=== PATIENT | female | born 1995 | race American Indian/Alaskan Native ===

== ENCOUNTER 2018-12-20 16:59 | Emergency (ER) | payer SELFPAY ==
--- NOTE | 2018-12-20 18:24 | Event Note ---
ED Screening Note Date of service: 12/20/18 Time: 18:19 ED Screening Note: 23 y/o female comes in for n/v and pelvic pain. She is 15 weeks preg. No vaginal bleeding. Follow Dr. Patterson [facility] on [address] 1 high risk preg. This initial assessment/diagnostic orders/clinical plan/treatment(s) is/are subject to change based on patients health status, clinical progression and re- assessment by fellow clinical providers in the ED. Further treatment and workup at subsequent clinical providers discretion. Patient/guardian urged not to elope from the ED as their condition may be serious if not clinically assessed and managed. Initial orders include:
[2018-12-20] MEDS ORDERED: ZOFRAN ODT PO ONE (19:34)
[2018-12-20] MEDS ORDERED: TYLENOL PO ONE (19:34)
[2018-12-20 19:47] LABS: Bacteria,Urine 1+ /HPF (Negative); Bilirubin,Urine NEG (Negative); Blood,Urine NEG (Negative); Color,Urine Straw (Yellow); Mucus,Urine FEW /HPF; Protein,Urine <15 mg/dL mg/dL (Negative); Urobilinogen,Urine < 2.0 mg/dL (<2.0)
--- NOTE | 2018-12-20 19:52 | Ultrasound Report ---
ULTRASOUND OBSTETRIC 12/20/2018 Indication: Pelvic pain. Evaluate movement. Findings: There is a single intrauterine . BPD = 3.0 cm = 15 weeks, 3 day(s). Head circumference = 11.1 cm = 15 weeks, 2 day(s). Abdominal circumference = 9 cm = 15 weeks, 2 day(s). Femur length = 1.9 cm = 15 weeks, 5 day(s). Overall estimated sonographic age = 15 weeks, 3 day(s). heart rate is 163 beats per minute. position is cephalic. Cervix appears closed. movement is present. Placenta is anterior. Amniotic fluid volume appears normal. Maternal adnexa appear normal. Impression: 1. Single living intrauterine with estimated sonographic age of 15 weeks, 3 day(s). Signer Name: Ellen Santa MD Signed: 12/20/2018 7:48 PM Workstation Name: [id number]
[2018-12-20 20:13] LABS: Basophils % (Auto) 0.2 % (0.0-1.8); Eosinophils # (Auto) 0.1 K/mm3 (0.0-0.4); Eosinophils % (Auto) 1.5 % (0.0-4.3); Hematocrit 32.5 % (30.3-42.9); Hemoglobin 10.6 gm/dl (10.1-14.3); Lymphocytes # (Auto) 1.5 K/mm3 (1.2-5.4); Lymphocytes % (Auto) 22.5 % (13.4-35.0); Mean Corpuscular HGB Conc 33 % (30-34); Mean Corpuscular Volume 81 fl (79-97); Monocytes # (Auto) 0.6 K/mm3 (0.0-0.8); Monocytes % (Auto) 9.9 % (0.0-7.3); Platelet Count 181 K/mm3 (140-440); Red Blood Count 4.03 M/mm3 (3.65-5.03); Red Cell Distribution Width 17.1 % (13.2-15.2)
[2018-12-20 21:04] LABS: Alanine Aminotransferase 8 units/L (7-56); Albumin 3.5 g/dL (3.9-5); BUN/Creatinine Ratio 15; Blood Urea Nitrogen 6 mg/dL (7-17); Calcium 8.9 mg/dL (8.4-10.2); Hemolysis Index 8
--- NOTE | 2018-12-20 21:55 | Emergency Department Report ---
ED Abdominal Pain HPI - General Chief Complaint: Nausea/Vomiting/Diarrhea Stated Complaint: 15WKS /VOMITING/BACK/STOMACH PAIN Time Seen by Provider: 12/20/18 18:18 Source: patient Mode of arrival: Ambulatory Limitations: No Limitations - History of Present Illness Initial Comments: Patient is a A0 23-year-old AA female who is approximately 15 weeks gestation and presents to the ED accompanied acute onset persistent diffuse abdominal pain for 2 days. Patient says the pain is worse with any movement or palpation. Patient denies dysuria, urinary frequency and urgency, vaginal bleeding, vaginal discharge, abdomen, nausea, vomiting, diarrhea or chest pain and dyspnea, cough or fever and chills MD Complaint: abdominal pain -: Sudden, days(s) (2) Location: LLQ, suprapubic Radiation: LLQ, suprapubic Migration to: no migration Severity: moderate Severity scale (0 -10): 3 Quality: cramping, aching Consistency: intermittent Improves With: nothing Worsens With: nothing Associated Symptoms: denies other symptoms, anorexia. denies: nausea, vomiting, diarrhea, fever, dysuria, hematemesis, hematochezia, melena, hematuria, other - Related Data Previous Rx's Medication Instructions Recorded Last Taken Type Amoxicillin [Trimox CAP] 500 mg PO Q8H #30 capsule 11/15/13 Unknown Rx Promethazine /Codeine 5 ml PO Q6H PRN #30 ml 11/15/13 Unknown Rx [Phenergan/Codeine 6.25-10 mg/5 ml] Brompheniramine/Pseudoephed/Dm 10 ml PO Q4H PRN 7 Days syrup 04/14/15 Unknown Rx [Bromfed Dm Cough Syrup] Ibuprofen [Motrin 600 MG tab] 600 mg PO Q8H PRN #20 tablet 04/14/15 Unknown Rx Allergies Allergy/AdvReac Type Severity Reaction Status Date / Time No Known Allergies Allergy Verified 12/20/18 17:03 ED Review of Systems ROS: Stated complaint: 15WKS /VOMITING/BACK/STOMACH PAIN Other details as noted in HPI Constitutional: denies: chills, fever Eyes: denies: eye pain, eye discharge, vision change ENT: denies: ear pain, throat pain Respiratory: denies: cough, shortness of breath, wheezing Cardiovascular: denies: chest pain, palpitations Endocrine: no symptoms reported Gastrointestinal: abdominal pain. denies: nausea, vomiting, diarrhea, constipation, hematemesis Genitourinary: denies: urgency, dysuria, frequency, hematuria, discharge, abnormal menses, dyspareunia Musculoskeletal: denies: back pain, joint swelling, arthralgia Skin: denies: rash, lesions Neurological: denies: headache, weakness, paresthesias Psychiatric: denies: anxiety, depression Hematological/Lymphatic: denies: easy bleeding, easy bruising ED Past Medical Hx - Past Medical History Previous Medical History?: No - Surgical History Past Surgical History?: Yes Additional Surgical History: c section - Social History Smoking Status: Never Smoker Substance Use Type: None - Medications Home Medications: Home Medications Medication Instructions Recorded Confirmed Last Taken Type Amoxicillin [Trimox CAP] 500 mg PO Q8H #30 capsule 11/15/13 Unknown Rx Promethazine /Codeine 5 ml PO Q6H PRN #30 ml 11/15/13 Unknown Rx [Phenergan/Codeine 6.25-10 mg/5 ml] Brompheniramine/Pseudoephed/Dm 10 ml PO Q4H PRN 7 Days syrup 04/14/15 Unknown Rx [Bromfed Dm Cough Syrup] Ibuprofen [Motrin 600 MG tab] 600 mg PO Q8H PRN #20 tablet 04/14/15 Unknown Rx ED Physical Exam - General Limitations: No Limitations General appearance: alert, in no apparent distress - Head Head exam: Present: atraumatic, normocephalic, normal inspection - Eye Eye exam: Present: normal appearance, PERRL, EOMI Pupils: Present: normal accommodation - ENT ENT exam: Present: normal exam, normal orophraynx, mucous membranes moist, TM's normal bilaterally, normal external ear exam - Neck Neck exam: Present: normal inspection, full ROM. Absent: tenderness, meningismus, lymphadenopathy, thyromegaly - Respiratory Respiratory exam: Present: normal lung sounds bilaterally. Absent: respiratory distress, wheezes, rales, rhonchi, stridor, chest wall tenderness, accessory muscle use, decreased breath sounds, prolonged expiratory - Cardiovascular Cardiovascular Exam: Present: regular rate, normal rhythm, normal heart sounds. Absent: systolic murmur, diastolic murmur, rubs, gallop - GI/Abdominal GI/Abdominal exam: Present: soft, tenderness (mildly tender suprapubic and left lower quadrant area), normal bowel sounds. Absent: hyperactive bowel sounds, hypoactive bowel sounds, organomegaly - Rectal Rectal exam: Present: deferred - Extremities Exam Extremities exam: Present: normal inspection, full ROM, normal capillary refill - Back Exam Back exam: Present: normal inspection, full ROM. Absent: CVA tenderness (L), muscle spasm, paraspinal tenderness - Neurological Exam Neurological exam: Present: alert, oriented X3, CN II-XII intact, normal gait, reflexes normal - Psychiatric Psychiatric exam: Present: normal affect, normal mood - Skin Skin exam: Present: warm, dry, intact, normal color. Absent: rash ED Course Vital Signs 12/20/18 21:58 Temperature 98.8 F Pulse Rate 81 Respiratory 16 Rate Blood Pressure 106/57 [Right] O2 Sat by Pulse 100 Oximetry - Reevaluation(s) Reevaluation #1: 12/20/18 21:58 This is a 23-year-old A0 AA female who is approximately 15 weeks gestation and who presented to the ED with left lower quadrant and suprapubic pain for 2 days. In the ED, patient is alert and oriented 3 and distention and distress. Lab test results were reviewed and are all nonactionable. The pelvic ultrasound shows single live IUP approximately 15 weeks and 3 days gestation with heart rate of 153 bpm. No other abnormalities identified in the ultrasound. Patient was treated for pain in the ED with Tylenol and on reevaluation, patient's pain is well controlled with medications. Patient is discharged home and advised to maintain a complete pelvic rest and follow up without MANAGER ENTRY physician in 3-5 days for reevaluation. The patient was also advised to return to the ED immediately if the symptoms get worse. ED Medical Decision Making - Lab Data Result diagrams: 12/20/18 19:40 12/20/18 19:40 - Radiology Data Radiology results: report reviewed, image reviewed Findings [facility] [address] [place] [address] Ultrasound Report Signed Patient: ROMÁN PEACE MR#: [id number] : 1995 Acct:[id number] Age/Sex: 23 / F ADM Date: 12/20/18 Loc: ED Attending Dr: Ordering Physician: YIN MOODY Date of Service: 12/20/18 Procedure(s): US OB >= 14 weeks Fetus Accession Number(s): [id number] cc: RAJI YIN RESTREPO ULTRASOUND OBSTETRIC 12/20/2018 Indication: Pelvic pain. Evaluate movement. Findings: There is a single intrauterine . BPD = 3.0 cm = 15 weeks, 3 day(s). Head circumference = 11.1 cm = 15 weeks, 2 day(s). Abdominal circumference = 9 cm = 15 weeks, 2 day(s). Femur length = 1.9 cm = 15 weeks, 5 day(s). Overall estimated sonographic age = 15 weeks, 3 day(s). heart rate is 163 beats per minute. position is cephalic. Cervix appears closed. movement is present. Placenta is anterior. Amniotic fluid volume appears normal. Maternal adnexa appear normal. Impression: 1. Single living intrauterine with estimated sonographic age of 15 weeks, 3 day(s). Signer Name: Ellen Santa MD Signed: 12/20/2018 7:48 PM Workstation Name: [id number] Transcribed By: JUDY Dictated By: Ellen Santa MD Electronically Authenticated By: Ellen Santa MD Signed Date/Time: 12/20/18 194 - Medical Decision Making This is a 23-year-old A0 AA female who is approximately 15 weeks gestation and who presented to the ED with left lower quadrant and suprapubic pain for 2 days. In the ED, patient is alert and oriented 3 and distention and distress. Lab test results were reviewed and are all nonactionable. The pelvic ultrasound shows single live IUP approximately 15 weeks and 3 days gestation with heart rate of 153 bpm. No other abnormalities identified in the ultrasound. Patient was treated for pain in the ED with Tylenol and on reevaluation, patient's pain is well controlled with medications. Patient is discharged home and advised to maintain a complete pelvic rest and follow up without MANAGER ENTRY physician in 3-5 days for reevaluation. The patient was also advised to return to the ED immediately if the symptoms get worse. - Differential Diagnosis Abdominal pain; Ovarian cysts; UTI; Threatened Miscarriage Critical care attestation.: If time is entered above; I have spent that time in minutes in the direct care of this critically ill patient, excluding procedure time. ED Disposition Clinical Impression: Abdominal pain during in second trimester Disposition: DC- TO HOME OR SELFCARE Is pt being admited?: No Does the pt Need Aspirin: No Condition: Stable Instructions: Abdominal Pain in (ED) Additional Instructions: Maintain a complete pelvic rest, take Tylenol as needed for pain, and follow-up with your MANAGER ENTRY physician in 3-5 days for reevaluation. Return to the ED immediately if symptoms get worse Referrals: CHERYL MONTEZ MD [Primary Care Provider] - 3-5 Days Time of Disposition: 21:50 Print Language: PASHTO
[2018-12-20 21:59] VITALS: BP 106/57
== END 2018-12-20 21:54 | disposition home or self-care (01) ==
LOC: ED 16:59
DX: O26.892 Other specified pregnancy related conditions, second trimester (principal); Z79.899 Other long term (current) drug therapy; Z3A.15 15 weeks gestation of pregnancy
CPT/HCPCS: 36415; 76805; 80053; 81001; 84702; 85025; Q0162

== ENCOUNTER 2019-04-29 13:18 | Outpatient (CLI) | payer MEDICAID ==
[2019-04-29] MEDS ORDERED: LACTATED RINGERS 1,000 ML IV SCH (14:00)
[2019-04-29 14:30] LABS: Bacteria,Urine 2+ /HPF (Negative); Bilirubin,Urine NEG (Negative); Blood,Urine NEG (Negative); Color,Urine Straw (Yellow); Protein,Urine <15 mg/dL mg/dL (Negative); Urobilinogen,Urine < 2.0 mg/dL (<2.0)
[2019-04-29 15:14] LABS: Hematocrit 34.5 % (30.3-42.9); Hemoglobin 11.3 gm/dl (10.1-14.3); Mean Corpuscular HGB Conc 33 % (30-34); Mean Corpuscular Volume 82 fl (79-97); Platelet Count 150 K/mm3 (140-440); Red Blood Count 4.22 M/mm3 (3.65-5.03); Red Cell Distribution Width 17.8 % (13.2-15.2)
[2019-04-29 15:38] LABS: Alanine Aminotransferase 9 units/L (7-56); Uric Acid 3.9 mg/dL (3.5-7.6)
[2019-04-29] MEDS ORDERED: ACETAMINOPHEN 500 MG TAB PO ONE (17:40)
[2019-04-29] MEDS ORDERED: BUTALB/ACETAMINOPHEN/CAFFEINE TAB PO PRN (19:04)
[2019-04-29 20:38] VITALS: BP 121/72
== END 2019-04-29 21:12 | disposition home or self-care (01) ==
LOC: TRG 13:18
PROVIDERS: ATTEND Obstetrics & Gynecology
DX: O13.3 Gestational [pregnancy-induced] hypertension without significant proteinuria, third trimester (principal); O47.03 False labor before 37 completed weeks of gestation, third trimester; Z3A.34 34 weeks gestation of pregnancy
CPT/HCPCS: 36415; 59025; 81001; 82565; 83615; 84450; 84460; 84550; 85027; 96360; 96361; J7120

== ENCOUNTER 2019-05-02 18:02 | Outpatient (CLI) | payer MEDICAID | END 2019-05-02 21:48 | disposition home or self-care (01) | LOC: TRG 18:02 | PROVIDERS: ATTEND Obstetrics & Gynecology | DX: O26.893 Other specified pregnancy related conditions, third trimester (principal); R19.04 Left lower quadrant abdominal swelling, mass and lump; Z3A.34 34 weeks gestation of pregnancy | CPT/HCPCS: 59025 ==

== ENCOUNTER 2021-12-09 15:47 | Emergency (ER) | payer MEDICAID ==
--- NOTE | 2021-12-09 22:18 | Emergency Department Report ---
ED General Adult HPI - General Chief complaint: Skin/Abscess/Foreign Body Stated complaint: PIERCING/POSSIBLE INFECTION/FACE PUI?: No Time Seen by Provider: 12/09/21 22:11 Source: patient Mode of arrival: Ambulatory Limitations: No Limitations - History of Present Illness Initial comments: Patient presrent to ED d/t infected piercing patient states piercing piece in stuck in skin on her face. -: days(s) Location: face Severity scale (0 -10): 7 Quality: aching Consistency: constant Improves with: none Worsens with: none - Related Data Previous Rx's Medication Instructions Recorded Last Taken Type Amoxicillin [Trimox CAP] 500 mg PO Q8H #30 capsule 11/15/13 Unknown Rx Promethazine /Codeine 5 ml PO Q6H PRN #30 ml 11/15/13 Unknown Rx [Phenergan/Codeine 6.25-10 mg/5 ml] Brompheniramine/Pseudoephed/Dm 10 ml PO Q4H PRN 7 Days syrup 04/14/15 Unknown Rx [Bromfed Dm Cough Syrup] Ibuprofen [Motrin 600 MG tab] 600 mg PO Q8H PRN #20 tablet 04/14/15 Unknown Rx Bacitracin 1 each TP TID #14 packet 12/09/21 Unknown Rx cephALEXin [Keflex] 500 mg PO Q12HR #14 cap 12/09/21 Unknown Rx Allergies Allergy/AdvReac Type Severity Reaction Status Date / Time No Known Allergies Allergy Verified 12/09/21 17:48 ED Review of Systems ROS: Stated complaint: PIERCING/POSSIBLE INFECTION/FACE Other details as noted in HPI Constitutional: denies: chills, fever Eyes: denies: eye pain, eye discharge, vision change ENT: denies: ear pain, throat pain Respiratory: denies: cough, shortness of breath, wheezing Cardiovascular: denies: chest pain, palpitations Endocrine: no symptoms reported Gastrointestinal: denies: abdominal pain, nausea, diarrhea Genitourinary: denies: urgency, dysuria, discharge Musculoskeletal: denies: back pain, joint swelling, arthralgia Skin: denies: rash, lesions Neurological: denies: headache, weakness, paresthesias Psychiatric: denies: anxiety, depression Hematological/Lymphatic: denies: easy bleeding, easy bruising ED Past Medical Hx - Past Medical History Hx Hypertension: No Hx Diabetes: No Hx Deep Vein Thrombosis: No Hx Renal Disease: No Hx Sickle Cell Disease: No Hx Seizures: No Hx Asthma: No Hx HIV: No - Surgical History Additional Surgical History: c section - Social History Smoking Status: Never Smoker - Medications Home Medications: Home Medications Medication Instructions Recorded Confirmed Last Taken Type Amoxicillin [Trimox CAP] 500 mg PO Q8H #30 capsule 11/15/13 Unknown Rx Promethazine /Codeine 5 ml PO Q6H PRN #30 ml 11/15/13 Unknown Rx [Phenergan/Codeine 6.25-10 mg/5 ml] Brompheniramine/Pseudoephed/Dm 10 ml PO Q4H PRN 7 Days syrup 04/14/15 Unknown Rx [Bromfed Dm Cough Syrup] Ibuprofen [Motrin 600 MG tab] 600 mg PO Q8H PRN #20 tablet 04/14/15 Unknown Rx Bacitracin 1 each TP TID #14 packet 12/09/21 Unknown Rx cephALEXin [Keflex] 500 mg PO Q12HR #14 cap 12/09/21 Unknown Rx ED Physical Exam - General Limitations: No Limitations General appearance: alert, in no apparent distress - Head Head exam: Present: atraumatic, normocephalic - Eye Eye exam: Present: normal appearance - ENT ENT exam: Present: mucous membranes moist - Neck Neck exam: Present: normal inspection - Respiratory Respiratory exam: Present: normal lung sounds bilaterally. Absent: respiratory distress - Cardiovascular Cardiovascular Exam: Present: regular rate, normal rhythm. Absent: systolic murmur, diastolic murmur, rubs, gallop - GI/Abdominal GI/Abdominal exam: Present: soft, normal bowel sounds - Extremities Exam Extremities exam: Present: normal inspection - Back Exam Back exam: Present: normal inspection - Neurological Exam Neurological exam: Present: alert, oriented X3 - Psychiatric Psychiatric exam: Present: normal affect, normal mood - Skin Skin exam: Present: warm, intact, normal color, erythema. Absent: rash ED Course Vital Signs 12/09/21 17:45 Temperature 98.9 F Pulse Rate 82 Respiratory 18 Rate Blood Pressure 120/63 [Right] O2 Sat by Pulse 100 Oximetry Critical care attestation.: If time is entered above; I have spent that time in minutes in the direct care of this critically ill patient, excluding procedure time. ED Disposition Clinical Impression: Cellulitis Disposition: HOME / SELF CARE / HOMELESS Is pt being admited?: No Does the pt Need Aspirin: No Condition: Stable Instructions: Cellulitis, Adult Prescriptions: Bacitracin 1 each TP TID #14 packet cephALEXin [Keflex] 500 mg PO Q12HR #14 cap
[2021-12-09 23:28] VITALS: BP 128/67
== END 2021-12-09 23:28 | disposition home or self-care (01) ==
LOC: ED 15:47
DX: L03.90 Cellulitis, unspecified (principal)
CPT/HCPCS: 99282